=== PATIENT | male | born 1985 | race Caucasian/White ===

== ENCOUNTER 2018-09-12 11:33 | Emergency (ER) | payer OTHER ==
--- NOTE | 2018-09-12 12:51 | RAD ---
RIGHT INDEX FINGER 3 VIEWS: Date: 09/12/18 HISTORY: Right finger injury. FINDINGS: Joint spaces are preserved. No acute fracture, dislocation, or other opaque foreign bodies. IMPRESSION: No acute osseous abnormalities are demonstrated. POS: [facility]
== END 2018-09-12 13:15 | disposition home or self-care (01) ==
LOC: ERS 11:33
DX: S60.121A Contusion of right index finger with damage to nail, initial encounter (principal); F43.10 Post-traumatic stress disorder, unspecified; Z79.899 Other long term (current) drug therapy; W27.8XXA Contact with other nonpowered hand tool, initial encounter
CPT/HCPCS: 11740